=== PATIENT | female | born 2005 | race Caucasian/White ===

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

== ENCOUNTER 2025-08-23 09:32 | Outpatient (CLI) | payer BC, SELFPAY ==
[2025-08-24 22:58] LABS: HPV Source Cervix
[2025-08-27 11:06] LABS: Pap Test Digital Imaging Done
== END 2025-08-23 09:33 | disposition home or self-care (01) ==
PROVIDERS: PCP Family Medicine; Visit Provider Family Medicine
DX: Z12.4 Encounter for screening for malignant neoplasm of cervix (principal); D50.9 Iron deficiency anemia, unspecified; Z13.6 Encounter for screening for cardiovascular disorders; Z13.0 Encounter for screening for diseases of the blood and blood-forming organs and certain disorders involving the immune mechanism
CPT/HCPCS: 80061; 82728; 83540; 83550; 87624; 87625; 88141; 88142; 88175